=== PATIENT | male | born 1945 | race Asian ===

== ENCOUNTER 2022-06-09 07:30 | Outpatient (CLI) | payer BC | END 2022-06-09 07:31 | disposition home or self-care (01) | LOC: CSHCT 07:30 | PROVIDERS: ATTEND Family Medicine | DX: D3A.092 Benign carcinoid tumor of the stomach (principal); E27.9 Disorder of adrenal gland, unspecified; M89.8X8 Other specified disorders of bone, other site | CPT/HCPCS: 74177 ==